=== PATIENT | female | born 1950 | race African-American/Black ===

== ENCOUNTER 2019-01-07 09:57 | Inpatient (IN) | payer BC, MEDICAID, MEDICARE, OTHER ==
[2019-01-07] VITALS (27 sets, daily range): BP systolic 114–151; BP diastolic 75–100
[~2019-01-07] VITALS: Ht 157.5 cm; Wt 63.5 kg
[~2019-01-07 09:57] MED LIST: AMLO10TA80 PO; ASPI-1079 PO; ATOR10TA PO; CLOP75TA4 PO; DIVA500T3 PO
[2019-01-07] MEDS ORDERED: SODIUM CHLORIDE 0.9% 1,000 ML IV ONE (10:00)
[2019-01-07] MEDS ORDERED: LEVETIRACETAM 1000MG/100ML 100 ML IV ONE (10:00)
[2019-01-07] MEDS ORDERED: LORAZEPAM 2MG/ML CPJ IV ONE (10:00)
[2019-01-07] MEDS ORDERED: PROPOFOL 10MG/ML 100ML 100 ML IV ONE (10:15)
[2019-01-07] MEDS ORDERED: SUCCINYLCHOLINE CHLORIDE 200MG/10ML IV ONE (10:15)
[2019-01-07] MEDS ORDERED: ETOMIDATE 2MG/ML 10ML VIAL IV ONE (10:15)
[2019-01-07] MEDS ORDERED: MIDAZOLAM HCL 50 MG in DEXTROSE 5% WATER 40 ML IV ONE (10:15)
[2019-01-07 10:19] LABS: HEMOGLOBIN. 11.3 g/dL (12.0-16.0); MEAN CORPUSCULAR HEMOGLOBIN 33.5 pg (28.0-32.0); MEAN PLATELET VOLUME 9.8 fl (7.4-10.4); PLATELET 125 x1000/uL (130-400); RED BLOOD CELL COUNT 3.37 mill/uL (4.2-5.4)
[2019-01-07 10:26] LABS: INR 1.2; PROTHROMBIN TIME 12.3 sec (9.6-11.0)
[2019-01-07 10:37] LABS: CHLORIDE 107 mEq/L (98-107)
[2019-01-07 10:42] LABS: ETHANOL BLOOD < 10 mg/dL
[2019-01-07 10:46] LABS: CARBAMAZEPINE < 0.5 ug/mL (4-12); CREATINE KINASE 112 IU/L (26-192); PHENOBARBITAL < 2.1 ug/mL (15.0-40.0)
[2019-01-07 10:48] LABS: PLATELET ESTIMATE SLIGHTLY DECREASED
[2019-01-07 11:15] LABS: CLARITY URINE CLEAR (CLEAR); COLOR URINE YELLOW (YELLOW); KETONES URINE TRACE (NEGATIVE); LEUKOCYTE ESTERASE URINE NEGATIVE (NEGATIVE); NITRITE URINE NEGATIVE (NEGATIVE); OCCULT BLOOD URINE NEGATIVE (NEGATIVE); PH URINE 6.5 (4.5-8.0); PROTEIN URINE 1+ (NEGATIVE); SPECIFIC GRAVITY URINE 1.015 (1.005-1.030)
[2019-01-07] MEDS ORDERED: FUROSEMIDE 20MG/2ML VIAL IVP ONE (11:30)
[2019-01-07] MEDS ORDERED: ASPIRIN 300MG SUPP PR ONE (11:30)
[2019-01-07] MEDS: DEXT 5%/0.45% NACL 1000ML 1,000 ML IV SCH ×2 (11:32→14:27)
[2019-01-07 11:36] LABS: *AMPHETAMINES SCREEN URINE NEGATIVE (NEGATIVE); *BARBITURATES SCREEN URINE NEGATIVE (NEGATIVE); *BENZODIAZEPINES SCREEN URINE PRESUMTIVE POSITIVE (NEGATIVE)
[2019-01-07 11:37] LABS: *COCAINE SCREEN URINE NEGATIVE (NEGATIVE); CANNABINOID URINE SCREEN NEGATIVE (NEGATIVE); METHADONE URINE SCREEN NEGATIVE (NEGATIVE); OPIATES URINE SCREEN NEGATIVE (NEGATIVE)
[2019-01-07 11:38] LABS: PHENCYCLIDINE URINE SCREEN NEGATIVE (NEGATIVE)
[2019-01-07] MEDS ORDERED: NA PHOS,M-B/NA PHOS,DI-BA ENEMA 118ML PR PRN (11:45)
[2019-01-07] MEDS ORDERED: ENOXAPARIN 40MG/0.4ML SYR SUBCUT SCH (11:45)
[2019-01-07] MEDS ORDERED: MORPHINE SULFATE 2 MG/ML CPJ (NOT FOR IM USE) IV PRN (11:45)
[2019-01-07] MEDS ORDERED: DIPHENHYDRAMINE 50MG/ML VIAL IV PRN (11:45)
[2019-01-07] MEDS ORDERED: HYDROCODONE/ACETAMINOPHEN 5/325MG TABLET PO PRN (11:45)
[2019-01-07] MEDS ORDERED: CLONIDINE 0.1MG TABLET PO PRN (11:45)
[2019-01-07] MEDS ORDERED: ACETAMINOPHEN 325MG TABLET PO PRN (11:45)
[2019-01-07] MEDS ORDERED: GUAIFENESIN 200MG/10ML SUGAR FREE UDC PO PRN (11:45)
[2019-01-07] MEDS ORDERED: MAGNESIUM/ALUMINUM HYDROXIDE/SIMETHICONE 30ML UDC PO PRN (11:45)
[2019-01-07] MEDS ORDERED: ONDANSETRON HCL 4MG/2ML INJ IV PRN (11:45)
[2019-01-07] MEDS ORDERED: IPRATROPIUM/ALBUTEROL 0.5-3(2.5)MG/3ML NEB INH PRN (11:45)
[2019-01-07] MEDS ORDERED: DOCUSATE SODIUM 100MG CAPSULE PO PRN (11:45)
[2019-01-07 11:47] LABS: BG BASE EXCESS 2.5 mmol/L (-2.0-2.0); BG CARBOXYHEMOGLOBIN 0.3 % (0.5-1.5); BG DEOXYHEMOGLOBIN 0.4 % (0.0-5.0); BG FRACTION INSPIRED OXYGEN 100; BG HCO3 ACT 23.7 mmol/L (22.0-26.0); BG METHEMOGLOBIN 0.3 % (0.0-1.5); BG OXYGEN SATURATION 99.6 % (92.0-98.5); BG PCO2 26.5 mmHg (35.0-45.0); BG PO2 478.4 mmHg (75.0-100.0); BG SAMPLE SITE RIGHT RADIAL; BG TIDAL VOLUME(mL) 500 mL; BG TOTAL HEMOGLOBIN 11.2 g/dL (12.0-18.0); BG VENT MODE VENT - A/C; BG VENT RATE 14 set
[2019-01-07] MEDS ORDERED: LIDOCAINE HCL 1% 20ML VIAL (Pyxis) INJ INFIL ONE (12:30)
[2019-01-07] MEDS ORDERED: CEFTRIAXONE SODIUM 1 G/VIAL IM ONE (12:30)
[2019-01-07] MEDS ORDERED: IPRATROPIUM/ALBUTEROL 0.5-3(2.5)MG/3ML NEB HHN PRN (13:00)
[2019-01-07] MEDS ORDERED: PROPOFOL 10MG/ML 100ML 100 ML IV PRN (13:00)
[2019-01-07] MEDS: ASPIRIN 81MG EC TABLET PO SCH (13:10)
[2019-01-07] MEDS ORDERED: FUROSEMIDE 20MG/2ML VIAL IVP NR (13:30)
[2019-01-07] MEDS: IPRATROPIUM/ALBUTEROL 0.5-3(2.5)MG/3ML NEB HHN SCH ×3 (13:33→19:53)
[2019-01-07] MEDS: ENOXAPARIN 40MG/0.4ML SYR SUBCUT SCH (14:27)
[2019-01-07 15:57] LABS: CREATINE KINASE MB FRACTION 4.9 ng/mL (0.5-3.6)
[2019-01-07] MEDS ORDERED: POTASSIUM CHLORIDE INJ 40 MEQ in DEXT 5% WATER 250 ML IV SCH (16:30)
[2019-01-07] MEDS: PIPERACILLIN/TAZ 3.375G PREMIX 50 ML IV SCH ×2 (17:52→23:45)
[2019-01-07] MEDS ORDERED: LACO150T2 PO (19:00)
[2019-01-07] MEDS ORDERED: DONE5TAB33 PO (19:00)
[2019-01-07] MEDS ORDERED: LISI40TA4 PO (19:00)
[2019-01-07] MEDS ORDERED: METO-385 PO (19:00)
[2019-01-07] MEDS ORDERED: LEVE500T98 PO (19:00)
[2019-01-07] MEDS ORDERED: PRAV10TA35 MT (19:00)
[2019-01-07] MEDS ORDERED: LORAZEPAM 2MG/ML CPJ IV PRN (19:45)
[2019-01-07] MEDS: LEVETIRACETAM 500MG TABLET PO SCH (20:34)
[2019-01-08] VITALS (57 sets, daily range): BP systolic 105–166; BP diastolic 68–108
[2019-01-08] MEDS: IPRATROPIUM/ALBUTEROL 0.5-3(2.5)MG/3ML NEB HHN SCH ×6 (00:11→19:52)
[2019-01-08] MEDS: PIPERACILLIN/TAZ 3.375G PREMIX 50 ML IV SCH ×3 (05:16→17:51)
[2019-01-08 06:00] LABS: BASOPHILS % 0.3 % (0.0-2.0); EOSINOPHILS % 0.1 % (0.0-5.0); HEMATOCRIT. 36.1 % (36.0-48.0); HEMOGLOBIN. 11.8 g/dL (12.0-16.0); LYMPHOCYTES % 38.2 % (20.0-50.0); MEAN CORPUSCULAR HEMOGLOBIN 32.9 pg (28.0-32.0); MEAN CORPUSCULAR VOLUME 100.5 fL (81.0-99.0); MEAN PLATELET VOLUME 11.1 fl (7.4-10.4); MONOCYTES % 10.5 % (2.0-8.0); NEUTROPHILS % 50.9 % (40.0-76.0); PLATELET 101 x1000/uL (130-400); RED BLOOD CELL COUNT 3.59 mill/uL (4.2-5.4); RED CELL DISTRIBUTION WIDTH 14.9 % (11.6-14.6)
[2019-01-08 07:36] LABS: BG BASE EXCESS 0.6 mmol/L (-2.0-2.0); BG CARBOXYHEMOGLOBIN 0.5 % (0.5-1.5); BG DEOXYHEMOGLOBIN 0.9 % (0.0-5.0); BG FRACTION INSPIRED OXYGEN 40; BG HCO3 ACT 23.6 mmol/L (22.0-26.0); BG METHEMOGLOBIN 0.3 % (0.0-1.5); BG OXYGEN SATURATION 99.1 % (92.0-98.5); BG OXYHEMOGLOBIN 98.3 % (94.0-97.0); BG PCO2 32.2 mmHg (35.0-45.0); BG PH 7.482 (7.350-7.450); BG PO2 179.3 mmHg (75.0-100.0); BG SAMPLE SITE RIGHT RADIAL; BG TIDAL VOLUME(mL) 500 mL; BG TOTAL HEMOGLOBIN 11.8 g/dL (12.0-18.0); BG VENT MODE VENT - A/C; BG VENT RATE 12 set
[2019-01-08] MEDS: LEVETIRACETAM 500MG TABLET PO SCH ×2 (09:52→20:24)
[2019-01-08] MEDS: LANSOPRAZOLE 15MG DR CAPSULE NG SCH (09:52)
[2019-01-08] MEDS: ASPIRIN 81MG EC TABLET PO SCH (09:52)
[2019-01-08 09:54] LABS: CHLORIDE 107 mEq/L (98-107)
[2019-01-08 10:04] LABS: CREATINE KINASE MB FRACTION 4.6 ng/mL (0.5-3.6)
[2019-01-08 10:05] LABS: LDL CHOLESTEROL 73 mg/dL (5-100)
[2019-01-08 10:06] LABS: CREATINE KINASE 224 IU/L (26-192); HDL CHOLESTEROL 101 mg/dL (40-59)
[2019-01-08 10:08] LABS: T4 FREE 0.84 ng/dL (0.76-1.46)
[2019-01-08] MEDS ORDERED: POTASSIUM CHLORIDE 20MEQ/PACKET PO NR (11:24)
[2019-01-08] MEDS: DEXT 5%/0.45% NACL 1000ML 1,000 ML IV SCH (11:45)
[2019-01-08] MEDS: ENOXAPARIN 40MG/0.4ML SYR SUBCUT SCH (14:57)
[2019-01-09] VITALS (29 sets, daily range): BP systolic 127–169; BP diastolic 74–99
[2019-01-09] MEDS: IPRATROPIUM/ALBUTEROL 0.5-3(2.5)MG/3ML NEB HHN SCH ×6 (00:17→20:54)
[2019-01-09] MEDS: PIPERACILLIN/TAZ 3.375G PREMIX 50 ML IV SCH ×4 (00:47→17:04)
[2019-01-09] MEDS: DEXT 5%/0.45% NACL 1000ML 1,000 ML IV SCH ×3 (05:27→21:42)
[2019-01-09 07:21] LABS: BG BASE EXCESS 1.2 mmol/L (-2.0-2.0); BG CARBOXYHEMOGLOBIN 0.2 % (0.5-1.5); BG DEOXYHEMOGLOBIN 1.6 % (0.0-5.0); BG HCO3 ACT 23.7 mmol/L (22.0-26.0); BG METHEMOGLOBIN 0.2 % (0.0-1.5); BG OXYGEN SATURATION 98.4 % (92.0-98.5); BG PCO2 30.8 mmHg (35.0-45.0); BG PH 7.504 (7.350-7.450); BG SAMPLE SITE RIGHT RADIAL; BG TIDAL VOLUME(mL) 500 mL; BG TOTAL HEMOGLOBIN 11.5 g/dL (12.0-18.0); BG VENT MODE VENT - A/C; BG VENT RATE 12 set
[2019-01-09 08:40] LABS: BASOPHILS % 0.5 % (0.0-2.0); EOSINOPHILS % 0.2 % (0.0-5.0); HEMATOCRIT. 31.2 % (36.0-48.0); HEMOGLOBIN. 10.3 g/dL (12.0-16.0); LYMPHOCYTES % 38.4 % (20.0-50.0); MEAN CORPUSCULAR HEMOGLOBIN 33.6 pg (28.0-32.0); MEAN CORPUSCULAR VOLUME 101.1 fL (81.0-99.0); MEAN PLATELET VOLUME 9.7 fl (7.4-10.4); MONOCYTES % 8.9 % (2.0-8.0); PLATELET 123 x1000/uL (130-400); RED BLOOD CELL COUNT 3.08 mill/uL (4.2-5.4); RED CELL DISTRIBUTION WIDTH 15.2 % (11.6-14.6)
[2019-01-09] MEDS: LEVETIRACETAM 500MG TABLET PO SCH ×2 (08:58→20:51)
[2019-01-09] MEDS: LANSOPRAZOLE 15MG DR CAPSULE NG SCH (08:58)
[2019-01-09] MEDS: ASPIRIN 81MG EC TABLET PO SCH (08:59)
[2019-01-09] MEDS ORDERED: POTASSIUM CHLORIDE INJ 40 MEQ in DEXT 5% WATER 250 ML IV NR (12:00)
[2019-01-09] MEDS: ENOXAPARIN 40MG/0.4ML SYR SUBCUT SCH (13:37)
[2019-01-09 18:11] LABS: BG BASE EXCESS -0.6 mmol/L (-2.0-2.0); BG CARBOXYHEMOGLOBIN 0.3 % (0.5-1.5); BG DEOXYHEMOGLOBIN 2.5 % (0.0-5.0); BG HCO3 ACT 23.5 mmol/L (22.0-26.0); BG METHEMOGLOBIN 0.4 % (0.0-1.5); BG OXYGEN SATURATION 97.5 % (92.0-98.5); BG OXYHEMOGLOBIN 96.8 % (94.0-97.0); BG PCO2 36.6 mmHg (35.0-45.0); BG PH 7.425 (7.350-7.450); BG PO2 109.6 mmHg (75.0-100.0); BG PRESSURE SUPPORT 14; BG SAMPLE SITE RIGHT BRACHIAL; BG TIDAL VOLUME(mL) 500 mL; BG TOTAL HEMOGLOBIN 10.8 g/dL (12.0-18.0); BG VENT MODE VENT - SIMV; BG VENT RATE 6 set
[2019-01-09 20:25] LABS: BG BASE EXCESS 1.2 mmol/L (-2.0-2.0); BG CARBOXYHEMOGLOBIN 0.3 % (0.5-1.5); BG DEOXYHEMOGLOBIN 1.5 % (0.0-5.0); BG FRACTION INSPIRED OXYGEN 35; BG HCO3 ACT 25.5 mmol/L (22.0-26.0); BG METHEMOGLOBIN 0.2 % (0.0-1.5); BG OXYGEN SATURATION 98.5 % (92.0-98.5); BG PCO2 39.3 mmHg (35.0-45.0); BG PEEP (cmH2O) 0 cmH2O; BG PO2 148.8 mmHg (75.0-100.0); BG PRESSURE SUPPORT 8; BG SAMPLE SITE RIGHT RADIAL; BG TOTAL HEMOGLOBIN 10.7 g/dL (12.0-18.0); BG VENT MODE VENT - CPAP
[2019-01-09] MEDS ORDERED: DEXTROSE 50% WATER 50ML SYRINGE IV PRN ×2 (21:15)
[2019-01-09] MEDS: HYDROCORTISONE SOD SUCCINATE 100 MG/2 ML VIAL IV SCH ×2 (21:23→21:42)
[2019-01-09] MEDS: LORAZEPAM 2MG/ML CPJ IV PRN ×2 (22:10→22:13)
[2019-01-10] VITALS (26 sets, daily range): BP systolic 113–162; BP diastolic 61–112
[2019-01-10] MEDS: BLOOD SUGAR DIAGNOSTIC STRIP TEST SCH ×4 (00:04→18:42)
[2019-01-10] MEDS: PIPERACILLIN/TAZ 3.375G PREMIX 50 ML IV SCH ×4 (00:10→18:42)
[2019-01-10] MEDS: IPRATROPIUM/ALBUTEROL 0.5-3(2.5)MG/3ML NEB HHN SCH ×6 (00:31→20:04)
[2019-01-10] MEDS: INSULIN LISPRO 100 UNITS/ML SUBCUT SCH ×4 (06:00→18:00)
[2019-01-10 06:11] LABS: BASOPHILS % 0.3 % (0.0-2.0); HEMATOCRIT. 30.9 % (36.0-48.0); HEMOGLOBIN. 10.3 g/dL (12.0-16.0); MEAN CORPUSCULAR HEMOGLOBIN 33.8 pg (28.0-32.0); MEAN PLATELET VOLUME 10.2 fl (7.4-10.4); MONOCYTES % 3.2 % (2.0-8.0); NEUTROPHILS % 82.5 % (40.0-76.0); PLATELET 133 x1000/uL (130-400); RED BLOOD CELL COUNT 3.06 mill/uL (4.2-5.4); RED CELL DISTRIBUTION WIDTH 15.1 % (11.6-14.6)
[2019-01-10] MEDS: HYDROCORTISONE SOD SUCCINATE 100 MG/2 ML VIAL IV SCH ×2 (06:11→14:41)
[2019-01-10 08:28] LABS: BG BASE EXCESS -2.3 mmol/L (-2.0-2.0); BG CARBOXYHEMOGLOBIN 0.2 % (0.5-1.5); BG DEOXYHEMOGLOBIN 2.5 % (0.0-5.0); BG FRACTION INSPIRED OXYGEN 35; BG HCO3 ACT 22.8 mmol/L (22.0-26.0); BG METHEMOGLOBIN 0.3 % (0.0-1.5); BG OXYGEN SATURATION 97.5 % (92.0-98.5); BG PCO2 40.4 mmHg (35.0-45.0); BG PO2 107.3 mmHg (75.0-100.0); BG PRESSURE SUPPORT 10; BG SAMPLE SITE RIGHT RADIAL; BG TIDAL VOLUME(mL) 500 mL; BG VENT MODE VENT - SIMV; BG VENT RATE 8 set
[2019-01-10] MEDS: LANSOPRAZOLE 15MG DR CAPSULE NG SCH (08:48)
[2019-01-10] MEDS: LEVETIRACETAM 500MG TABLET PO SCH ×2 (08:48→21:54)
[2019-01-10] MEDS: DEXT 5%/0.45% NACL 1000ML 1,000 ML IV SCH ×2 (09:25→21:55)
[2019-01-10] MEDS: AMLODIPINE 5MG TABLET PO SCH ×2 (09:25→21:55)
[2019-01-10] MEDS: ENOXAPARIN 40MG/0.4ML SYR SUBCUT SCH (14:24)
[2019-01-10 18:06] LABS: CLARITY URINE CLEAR (CLEAR); COLOR URINE YELLOW (YELLOW); KETONES URINE NEGATIVE (NEGATIVE); LEUKOCYTE ESTERASE URINE NEGATIVE (NEGATIVE); NITRITE URINE NEGATIVE (NEGATIVE); OCCULT BLOOD URINE 2+ (NEGATIVE); PROTEIN URINE NEGATIVE (NEGATIVE); SPECIFIC GRAVITY URINE 1.017 (1.005-1.030)
[2019-01-11] VITALS (24 sets, daily range): BP systolic 111–149; BP diastolic 58–92
[2019-01-11] MEDS: IPRATROPIUM/ALBUTEROL 0.5-3(2.5)MG/3ML NEB HHN SCH ×6 (00:11→20:15)
[2019-01-11] MEDS: BLOOD SUGAR DIAGNOSTIC STRIP TEST SCH ×5 (00:40→23:53)
[2019-01-11] MEDS: PIPERACILLIN/TAZ 3.375G PREMIX 50 ML IV SCH ×6 (00:50→23:53)
[2019-01-11] MEDS: HYDROCORTISONE SOD SUCCINATE 100 MG/2 ML VIAL IV SCH ×3 (00:50→21:27)
[2019-01-11] MEDS: LORAZEPAM 2MG/ML CPJ IV PRN (01:59)
[2019-01-11 05:47] LABS: HEMATOCRIT 28.7 % (36.0-48.0); HEMOGLOBIN 9.6 g/dL (12.0-16.0); MEAN CORPUSCULAR HEMOGLOBIN 33.3 pg (28.0-32.0); MEAN CORPUSCULAR VOLUME 99.8 fL (81.0-99.0); PLATELET 168 x1000/uL (130-400); RED BLOOD CELL COUNT 2.88 mill/uL (4.2-5.4); RED CELL DISTRIBUTION WIDTH 14.7 % (11.6-14.6)
[2019-01-11] MEDS: INSULIN LISPRO 100 UNITS/ML SUBCUT SCH ×5 (06:00→23:53)
[2019-01-11] MEDS ORDERED: POTASSIUM CHLORIDE 20MEQ TABLET SR PO SCH (07:00)
[2019-01-11 07:47] LABS: BG BASE EXCESS -2.3 mmol/L (-2.0-2.0); BG CARBOXYHEMOGLOBIN 0.4 % (0.5-1.5); BG DEOXYHEMOGLOBIN 3.1 % (0.0-5.0); BG FRACTION INSPIRED OXYGEN 35; BG HCO3 ACT 23.3 mmol/L (22.0-26.0); BG METHEMOGLOBIN 0.2 % (0.0-1.5); BG OXYGEN SATURATION 96.9 % (92.0-98.5); BG OXYHEMOGLOBIN 96.3 % (94.0-97.0); BG PCO2 43.1 mmHg (35.0-45.0); BG PO2 97.5 mmHg (75.0-100.0); BG PRESSURE SUPPORT 10; BG SAMPLE SITE RIGHT RADIAL; BG TIDAL VOLUME(mL) 500 mL; BG TOTAL HEMOGLOBIN 9.4 g/dL (12.0-18.0); BG VENT MODE VENT - SIMV; BG VENT RATE 8 set
[2019-01-11] MEDS: DEXT 5%/0.45% NACL 1000ML 1,000 ML IV SCH ×2 (08:00→23:53)
[2019-01-11] MEDS: AMLODIPINE 5MG TABLET PO SCH ×2 (08:55→21:28)
[2019-01-11] MEDS: LEVETIRACETAM 500MG TABLET PO SCH ×2 (08:55→21:28)
[2019-01-11] MEDS: LANSOPRAZOLE 15MG DR CAPSULE NG SCH (08:55)
[2019-01-11] MEDS: ENOXAPARIN 40MG/0.4ML SYR SUBCUT SCH (16:07)
[2019-01-11] MEDS: VIMPAT 150 MG PO SCH (17:09)
[2019-01-11 19:42] LABS: BG BASE EXCESS -1.3 mmol/L (-2.0-2.0); BG CARBOXYHEMOGLOBIN 0.3 % (0.5-1.5); BG DEOXYHEMOGLOBIN 3.3 % (0.0-5.0); BG FRACTION INSPIRED OXYGEN 35; BG HCO3 ACT 23.8 mmol/L (22.0-26.0); BG METHEMOGLOBIN 0.3 % (0.0-1.5); BG OXYGEN SATURATION 96.7 % (92.0-98.5); BG OXYHEMOGLOBIN 96.1 % (94.0-97.0); BG PCO2 41.3 mmHg (35.0-45.0); BG PH 7.378 (7.350-7.450); BG PO2 97.2 mmHg (75.0-100.0); BG PRESSURE SUPPORT 10; BG SAMPLE SITE RIGHT BRACHIAL; BG TOTAL HEMOGLOBIN 9.8 g/dL (12.0-18.0); BG VENT MODE VENT - CPAP
[2019-01-11] MEDS ORDERED: RACEPINEPHRINE 2.25% 0.5ML NEB VIAL HHN ONE (21:00)
[2019-01-11] MEDS ORDERED: RACEPINEPHRINE 2.25% 0.5ML NEB VIAL HHN PRN (21:00)
[2019-01-12] VITALS (16 sets, daily range): BP systolic 127–150; BP diastolic 66–89
[2019-01-12] MEDS: IPRATROPIUM/ALBUTEROL 0.5-3(2.5)MG/3ML NEB HHN SCH ×5 (00:21→21:52)
[2019-01-12] MEDS: INSULIN LISPRO 100 UNITS/ML SUBCUT SCH ×3 (05:53→18:00)
[2019-01-12] MEDS: BLOOD SUGAR DIAGNOSTIC STRIP TEST SCH ×3 (05:53→18:26)
[2019-01-12] MEDS: PIPERACILLIN/TAZ 3.375G PREMIX 50 ML IV SCH ×3 (05:53→18:26)
[2019-01-12 05:56] LABS: BASOPHILS % 0.1 % (0.0-2.0); HEMOGLOBIN. 9.9 g/dL (12.0-16.0); LYMPHOCYTES % 11.8 % (20.0-50.0); MEAN CORPUSCULAR HEMOGLOBIN 34.3 pg (28.0-32.0); MEAN CORPUSCULAR VOLUME 100.8 fL (81.0-99.0); MEAN PLATELET VOLUME 10.3 fl (7.4-10.4); MONOCYTES % 4.2 % (2.0-8.0); NEUTROPHILS % 83.9 % (40.0-76.0); PLATELET 200 x1000/uL (130-400); RED BLOOD CELL COUNT 2.87 mill/uL (4.2-5.4); RED CELL DISTRIBUTION WIDTH 15.1 % (11.6-14.6)
[2019-01-12 06:03] LABS: CHLORIDE 115 mEq/L (98-107)
[2019-01-12] MEDS ORDERED: POTASSIUM CHLORIDE 20MEQ/PACKET PO SCH (06:45)
[2019-01-12] MEDS: AMLODIPINE 5MG TABLET PO SCH ×2 (08:28→22:01)
[2019-01-12] MEDS: HYDROCORTISONE SOD SUCCINATE 100 MG/2 ML VIAL IV SCH ×2 (08:28→22:02)
[2019-01-12] MEDS: LEVETIRACETAM 500MG TABLET PO SCH ×2 (08:28→22:01)
[2019-01-12] MEDS: LANSOPRAZOLE 15MG DR CAPSULE NG SCH (08:28)
[2019-01-12] MEDS: VIMPAT 150 MG PO SCH ×2 (10:42→16:50)
[2019-01-12] MEDS: DEXT 5%/0.45% NACL 1000ML 1,000 ML IV SCH (10:43)
[2019-01-12] MEDS: ENOXAPARIN 40MG/0.4ML SYR SUBCUT SCH (15:04)
[2019-01-12] MEDS ORDERED: LORAZEPAM 2MG/ML CPJ IV PRN (15:45)
[2019-01-13] VITALS (7 sets, daily range): BP systolic 118–156; BP diastolic 68–79
[2019-01-13] MEDS: PIPERACILLIN/TAZ 3.375G PREMIX 50 ML IV SCH ×5 (00:23→23:43)
[2019-01-13] MEDS: BLOOD SUGAR DIAGNOSTIC STRIP TEST SCH ×5 (00:26→23:47)
[2019-01-13] MEDS: IPRATROPIUM/ALBUTEROL 0.5-3(2.5)MG/3ML NEB HHN SCH ×6 (02:47→20:03)
[2019-01-13] MEDS: INSULIN LISPRO 100 UNITS/ML SUBCUT SCH ×5 (06:00→23:47)
[2019-01-13 06:56] LABS: HEMATOCRIT 27.4 % (36.0-48.0); HEMOGLOBIN 9.4 g/dL (12.0-16.0); MEAN CORPUSCULAR HEMOGLOBIN 34.1 pg (28.0-32.0); MEAN CORPUSCULAR VOLUME 99.6 fL (81.0-99.0); PLATELET 209 x1000/uL (130-400); RED BLOOD CELL COUNT 2.75 mill/uL (4.2-5.4); RED CELL DISTRIBUTION WIDTH 15.1 % (11.6-14.6)
[2019-01-13] MEDS: LANSOPRAZOLE 15MG DR CAPSULE NG SCH (07:10)
[2019-01-13] MEDS: LEVETIRACETAM 500MG TABLET PO SCH ×2 (09:00→21:19)
[2019-01-13] MEDS: AMLODIPINE 5MG TABLET PO SCH ×2 (09:00→21:19)
[2019-01-13] MEDS: VIMPAT 150 MG PO SCH ×3 (09:00→18:01)
[2019-01-13] MEDS: HYDROCORTISONE SOD SUCCINATE 100 MG/2 ML VIAL IV SCH (11:33)
[2019-01-13] MEDS: DEXTROSE 5% WATER 1,000 ML IV SCH (12:28)
[2019-01-13] MEDS: ENOXAPARIN 40MG/0.4ML SYR SUBCUT SCH (12:31)
[2019-01-14] VITALS: BP 130/78
[2019-01-14] MEDS: IPRATROPIUM/ALBUTEROL 0.5-3(2.5)MG/3ML NEB HHN SCH ×3 (01:11→07:26)
[2019-01-14 04:00] VITALS: BP 158/66
[2019-01-14] MEDS: BLOOD SUGAR DIAGNOSTIC STRIP TEST SCH ×2 (05:02→12:34)
[2019-01-14] MEDS: PIPERACILLIN/TAZ 3.375G PREMIX 50 ML IV SCH ×2 (05:02→12:27)
[2019-01-14] MEDS: INSULIN LISPRO 100 UNITS/ML SUBCUT SCH ×2 (05:06→12:00)
[2019-01-14] MEDS: DEXTROSE 5% WATER 1,000 ML IV SCH ×2 (06:45→09:01)
[2019-01-14] MEDS ORDERED: OMEPRAZOLE 20MG CAPSULE EXTENDED RELEASE PO SCH (07:10)
[2019-01-14 08:00] VITALS: BP 128/74
[2019-01-14] MEDS: AMLODIPINE 5MG TABLET PO SCH (09:00)
[2019-01-14] MEDS: LEVETIRACETAM 500MG TABLET PO SCH (09:00)
[2019-01-14] MEDS ORDERED: HYDROCORTISONE SOD SUCCINATE 100 MG/2 ML VIAL IV SCH (09:00)
[2019-01-14 09:53] LABS: HEMATOCRIT 28.8 % (36.0-48.0); HEMOGLOBIN 9.6 g/dL (12.0-16.0); MEAN CORPUSCULAR HEMOGLOBIN 33.6 pg (28.0-32.0); MEAN CORPUSCULAR VOLUME 100.6 fL (81.0-99.0); PLATELET 216 x1000/uL (130-400); RED BLOOD CELL COUNT 2.86 mill/uL (4.2-5.4); RED CELL DISTRIBUTION WIDTH 15.3 % (11.6-14.6)
[2019-01-14] MEDS ORDERED: POTASSIUM CHLORIDE 20MEQ TABLET SR PO NR (10:45)
[2019-01-14 12:00] VITALS: BP 118/68
[2019-01-14] MEDS: ENOXAPARIN 40MG/0.4ML SYR SUBCUT SCH (12:27)
== END 2019-01-14 15:57 | disposition home health service (06) | DRG 207 ==
LOC: ER 09:57 → CVICU 11:36 → EDBEDREQ 11:38 → ENRESERV 11:59 → CVICU 18:53 → 8WST 01-12 13:33
PROVIDERS: ADMIT Internal Medicine; ATTEND Internal Medicine
PROC: 5A1955Z Respiratory Ventilation, Greater than 96 Consecutive Hours (ICD-10-PCS; principal; 2019-01-07)
PROC: 0BH17EZ Insertion of Endotracheal Airway into Trachea, Via Natural or Artificial Opening (ICD-10-PCS; 2019-01-07)
PROC: 0DH67UZ Insertion of Feeding Device into Stomach, Via Natural or Artificial Opening (ICD-10-PCS; 2019-01-07)
DX: J96.00 Acute respiratory failure, unspecified whether with hypoxia or hypercapnia (principal); G93.41 Metabolic encephalopathy; I21.4 Non-ST elevation (NSTEMI) myocardial infarction; J69.0 Pneumonitis due to inhalation of food and vomit; I69.351 Hemiplegia and hemiparesis following cerebral infarction affecting right dominant side; E46 Unspecified protein-calorie malnutrition; E87.0 Hyperosmolality and hypernatremia; E87.3 Alkalosis; N18.3 Chronic kidney disease, stage 3 (moderate); G40.901 Epilepsy, unspecified, not intractable, with status epilepticus; E78.5 Hyperlipidemia, unspecified; I12.9 Hypertensive chronic kidney disease with stage 1 through stage 4 chronic kidney disease, or unspecified chronic kidney disease; E78.00 Pure hypercholesterolemia, unspecified; D69.6 Thrombocytopenia, unspecified; D64.9 Anemia, unspecified; E11.22 Type 2 diabetes mellitus with diabetic chronic kidney disease; I25.10 Atherosclerotic heart disease of native coronary artery without angina pectoris; I51.7 Cardiomegaly; J38.4 Edema of larynx; Z78.1 Physical restraint status; Z79.899 Other long term (current) drug therapy; Z79.82 Long term (current) use of aspirin; Z68.25 Body mass index [BMI] 25.0-25.9, adult
CPT/HCPCS: 36415; 36600; 71045; 76770; 80048; 80061; 80156; 80165; 80184; 80185; 80305; 80320; 82375; 82550; 82553; 82805; 82962; 83880; 84439; 84443; 84484; 85027; 86850; 86900; 87070; 92610; 93005; 93306; 93970; 94002; 94003; 94640; 96374; 97162; 99285; C1893; J0330; J0696; J1650; J1720; J1953; J2060; J2250; J2270; J2543; J2704; J3480; J3490; J7030; J7040; J7050; J7060; J7070; J7620; G0480

== ENCOUNTER 2019-10-02 14:31 | Inpatient (IN) | payer MEDICARE ==
[~2019-10-02] VITALS: Ht 160 cm; Wt 74.8 kg
[~2019-10-02 14:31] MED LIST changes: -ASPI-1079 PO; -ATOR10TA PO; -CLOP75TA4 PO; +DONE5TAB33 PO; +LACO150T2 PO; +LEVE500T98 PO; +LISI40TA4 PO; +METO-385 PO; +PRAV10TA35 MT
[2019-10-02] MEDS ORDERED: LEVETIRACETAM 1000MG/100ML 100 ML IV ONE (15:15)
[2019-10-02 15:40] LABS: BASOPHILS % 0.7 % (0.0-2.0); EOSINOPHILS % 1.2 % (0.0-5.0); HEMATOCRIT. 36.2 % (36.0-48.0); HEMOGLOBIN. 12.2 g/dL (12.0-16.0); LYMPHOCYTES % 39.9 % (20.0-50.0); MEAN CORPUSCULAR HEMOGLOBIN 31.2 pg (28.0-32.0); MEAN CORPUSCULAR VOLUME 92.9 fL (81.0-99.0); MEAN PLATELET VOLUME 9.1 fl (7.4-10.4); NEUTROPHILS % 51.2 % (40.0-76.0); PLATELET 193 x1000/uL (130-400); RED CELL DISTRIBUTION WIDTH 13.7 % (11.6-14.6)
[2019-10-02 15:42] LABS: CHLORIDE 110 mEq/L (98-107)
[2019-10-02 15:46] LABS: ETHANOL BLOOD < 10 mg/dL
[2019-10-02] MEDS ORDERED: GUAIFENESIN 200MG/10ML SUGAR FREE UDC PO PRN (17:30)
[2019-10-02] MEDS ORDERED: IPRATROPIUM/ALBUTEROL 0.5-3(2.5)MG/3ML NEB NEB PRN (17:30)
[2019-10-02] MEDS ORDERED: ACETAMINOPHEN 325MG TABLET PO PRN (17:30)
[2019-10-02] MEDS ORDERED: MORPHINE SULFATE 2 MG/ML CPJ (NOT FOR IM USE) IV PRN (17:30)
[2019-10-02] MEDS ORDERED: DOCUSATE SODIUM 100MG CAPSULE PO PRN (17:30)
[2019-10-02] MEDS ORDERED: MAGNESIUM/ALUMINUM HYDROXIDE/SIMETHICONE 30ML UDC PO PRN (17:30)
[2019-10-02] MEDS ORDERED: CLONIDINE 0.1MG TABLET PO PRN (17:30)
[2019-10-02] MEDS ORDERED: HYDROCODONE/ACETAMINOPHEN 5/325MG TABLET PO PRN (17:30)
[2019-10-02] MEDS ORDERED: ONDANSETRON HCL 4MG/2ML INJ IV PRN (17:30)
[2019-10-02] MEDS ORDERED: LORAZEPAM 2MG/ML CPJ IV PRN ×2 (17:30→20:49)
[2019-10-02 17:35] LABS: CLARITY URINE CLEAR (CLEAR); COLOR URINE YELLOW (YELLOW); KETONES URINE NEGATIVE (NEGATIVE); LEUKOCYTE ESTERASE URINE TRACE (NEGATIVE); NITRITE URINE NEGATIVE (NEGATIVE); OCCULT BLOOD URINE NEGATIVE (NEGATIVE); PH URINE 7.5 (4.5-8.0); PROTEIN URINE 1+ (NEGATIVE); SPECIFIC GRAVITY URINE 1.012 (1.005-1.030); UROBILINOGEN URINE 0.2 E.U./dL (0.2-1.0)
[2019-10-02 17:49] LABS: *AMPHETAMINES SCREEN URINE NEGATIVE (NEGATIVE); *BARBITURATES SCREEN URINE NEGATIVE (NEGATIVE); *BENZODIAZEPINES SCREEN URINE PRESUMTIVE POSITIVE (NEGATIVE); *COCAINE SCREEN URINE NEGATIVE (NEGATIVE); METHADONE URINE SCREEN NEGATIVE (NEGATIVE); OPIATES URINE SCREEN NEGATIVE (NEGATIVE)
[2019-10-02 17:50] LABS: CANNABINOID URINE SCREEN NEGATIVE (NEGATIVE); PHENCYCLIDINE URINE SCREEN NEGATIVE (NEGATIVE)
[2019-10-02] MEDS: SODIUM CHLORIDE 0.45% 1,000 ML IV SCH (18:15)
[2019-10-02] MEDS: ENOXAPARIN 40MG/0.4ML SYR SUBCUT SCH (21:57)
[2019-10-03 04:10] VITALS: BP 157/80
[2019-10-03 04:30] VITALS: BP 147/70
[2019-10-03 08:00] VITALS: BP 144/67
[2019-10-03] MEDS: ASPIRIN 81MG EC TABLET PO SCH (08:53)
[2019-10-03 09:48] LABS: HEMATOCRIT. 36.6 % (36.0-48.0); HEMOGLOBIN. 12.3 g/dL (12.0-16.0); MEAN CORPUSCULAR HEMOGLOBIN 31.2 pg (28.0-32.0); MEAN CORPUSCULAR VOLUME 92.4 fL (81.0-99.0); MEAN PLATELET VOLUME 9.1 fl (7.4-10.4); PLATELET 191 x1000/uL (130-400); RED BLOOD CELL COUNT 3.96 mill/uL (4.2-5.4); RED CELL DISTRIBUTION WIDTH 14.1 % (11.6-14.6)
[2019-10-03 09:52] LABS: CHLORIDE 110 mEq/L (98-107)
[2019-10-03 10:01] LABS: HDL CHOLESTEROL 84 mg/dL (40-59)
[2019-10-03 10:02] LABS: LDL CHOLESTEROL 111 mg/dL (5-100)
[2019-10-03 10:23] LABS: CREATINE KINASE 61 IU/L (26-192)
[2019-10-03] MEDS: SODIUM CHLORIDE 0.45% 1,000 ML IV SCH ×2 (11:43→19:47)
[2019-10-03 12:00] VITALS: BP 139/54
[2019-10-03 14:31] LABS: PLATELET ESTIMATE NORMAL
[2019-10-03 16:00] VITALS: BP 150/74
[2019-10-03] MEDS: LACOSAMIDE 200 MG TABLET (VIMPAT) PO SCH (17:43)
[2019-10-03 20:00] VITALS: BP 152/74
[2019-10-03] MEDS: LEVETIRACETAM 500MG TABLET PO SCH (21:15)
[2019-10-03] MEDS: VALPROIC ACID 250MG CAPSULE PO SCH (21:18)
[2019-10-04] VITALS: BP 154/67
[2019-10-04 04:00] VITALS: BP 155/75
[2019-10-04] MEDS: SODIUM CHLORIDE 0.45% 1,000 ML IV SCH (06:23)
[2019-10-04 07:08] LABS: CHLORIDE 108 mEq/L (98-107)
[2019-10-04 07:29] LABS: BASOPHILS % 0.6 % (0.0-2.0); EOSINOPHILS % 2.2 % (0.0-5.0); HEMATOCRIT. 34.9 % (36.0-48.0); HEMOGLOBIN. 11.5 g/dL (12.0-16.0); MEAN CORPUSCULAR HEMOGLOBIN 30.5 pg (28.0-32.0); MEAN CORPUSCULAR VOLUME 92.6 fL (81.0-99.0); MEAN PLATELET VOLUME 9.4 fl (7.4-10.4); NEUTROPHILS % 36.2 % (40.0-76.0); PLATELET 176 x1000/uL (130-400); RED BLOOD CELL COUNT 3.77 mill/uL (4.2-5.4); RED CELL DISTRIBUTION WIDTH 13.7 % (11.6-14.6)
[2019-10-04 08:00] VITALS: BP 142/66
[2019-10-04] MEDS: ASPIRIN 81MG EC TABLET PO SCH (08:30)
[2019-10-04] MEDS: LEVETIRACETAM 500MG TABLET PO SCH (08:30)
[2019-10-04] MEDS: VALPROIC ACID 250MG CAPSULE PO SCH (08:30)
[2019-10-04] MEDS: LACOSAMIDE 200 MG TABLET (VIMPAT) PO SCH ×2 (08:30→16:37)
[2019-10-04] MEDS ORDERED: CLOPIDOGREL 75MG TABLET PO SCH (09:00)
[2019-10-04 12:00] VITALS: BP 147/76
[2019-10-04 13:42] VITALS: BP 147/74
[2019-10-04 16:00] VITALS: BP 147/47
[2019-10-04] MEDS: ENOXAPARIN 40MG/0.4ML SYR SUBCUT SCH (17:38)
== END 2019-10-04 18:02 | disposition home or self-care (01) | DRG 100 ==
LOC: ER 14:31 → EDBEDREQ 17:02 → ENRESERV 10-03 03:06 → 7WST 10-03 04:37
PROVIDERS: ADMIT Internal Medicine; ATTEND Internal Medicine
DX: G40.909 Epilepsy, unspecified, not intractable, without status epilepticus (principal); N17.0 Acute kidney failure with tubular necrosis; I69.351 Hemiplegia and hemiparesis following cerebral infarction affecting right dominant side; E86.0 Dehydration; N18.9 Chronic kidney disease, unspecified; F03.90 Unspecified dementia, unspecified severity, without behavioral disturbance, psychotic disturbance, mood disturbance, and anxiety; I12.9 Hypertensive chronic kidney disease with stage 1 through stage 4 chronic kidney disease, or unspecified chronic kidney disease; E87.6 Hypokalemia; D64.9 Anemia, unspecified; Z79.899 Other long term (current) drug therapy
CPT/HCPCS: 36415; 70551; 76770; 80048; 80053; 80061; 80305; 80320; 80339; 81003; 82550; 84439; 84443; 84484; 85025; 97116; 97162; 97166; 99285; J1650; J1953; J2060; G0480

== ENCOUNTER 2024-01-20 11:47 | Emergency (ER) | payer MEDICARE ==
[~2024-01-20] VITALS: Ht 162.6 cm; Wt 58.0 kg
[~2024-01-20 11:47] MED LIST changes: +LISI40TA13 PO; -LISI40TA4 PO
[2024-01-20 11:52] VITALS: O2SAT 100
[2024-01-20 13:15] LABS: BASOPHILS % 0.4 % (0.0-2.0); HEMATOCRIT. 33.7 % (36.0-48.0); HEMOGLOBIN. 11.5 g/dL (12.0-16.0); MEAN CORPUSCULAR HEMOGLOBIN 32.2 pg (28.0-32.0); MEAN CORPUSCULAR VOLUME 94.8 fL (81.0-99.0); MEAN PLATELET VOLUME 9.1 fl (7.4-10.4); MONOCYTES % 6.6 % (2.0-8.0); PLATELET 228 x1000/uL (130-400); RED BLOOD CELL COUNT 3.56 mill/uL (4.2-5.4); RED CELL DISTRIBUTION WIDTH 13.7 % (11.6-14.6); WHITE BLOOD COUNT 5.9 x1000/uL (4.5-11.0)
[2024-01-20 13:24] LABS: POTASSIUM 4.1 mEq/L (3.5-5.1)
[2024-01-20 13:25] LABS: CALCIUM 9.6 mg/dL (8.7-10.4)
[2024-01-20 13:30] LABS: CREATININE 1.3 mg/dL (0.6-1.0)
[2024-01-20 14:27] VITALS: TEMP 96
[2024-01-20] MEDS: LEVETIRACETAM 500MG PREMIX 100 ML IV ONE (14:33)
[2024-01-20 18:26] LABS: CLARITY URINE CLEAR (CLEAR); COLOR URINE YELLOW (YELLOW); GLUCOSE URINE NEGATIVE (NEGATIVE); KETONES URINE NEGATIVE (NEGATIVE); LEUKOCYTE ESTERASE URINE 2+ (NEGATIVE); NITRITE URINE NEGATIVE (NEGATIVE); OCCULT BLOOD URINE NEGATIVE (NEGATIVE); PROTEIN URINE NEGATIVE (NEGATIVE); SPECIFIC GRAVITY URINE 1.005 (1.005-1.030); UROBILINOGEN URINE 0.2 E.U./dL (0.2-1.0)
[2024-01-20 20:15] LABS: BACTERIA URINE TRACE; SQUAMOUS EPITHELIAL CELL URINE FEW /lpf (RARE/1+)
[2024-01-20 20:16] LABS: RBC URINE NONE SEEN /hpf (0-2)
[2024-01-21 00:55] VITALS: BP 165/90; PULSE 60; RESP 14
[2024-01-21] MEDS: HYDRALAZINE 20MG/ML VIAL IV ONE (01:16)
== END 2024-01-21 01:25 | disposition short-term general hospital (02) ==
LOC: EDBEDREQ 13:07 → ER 13:54 → CANBEDREQ 01-22 22:31
DX: S01.111A Laceration without foreign body of right eyelid and periocular area, initial encounter (principal); G40.909 Epilepsy, unspecified, not intractable, without status epilepticus; E78.00 Pure hypercholesterolemia, unspecified; I10 Essential (primary) hypertension; Z86.73 Personal history of transient ischemic attack (TIA), and cerebral infarction without residual deficits; X58.XXXA Exposure to other specified factors, initial encounter; Y93.89 Activity, other specified; Y92.89 Other specified places as the place of occurrence of the external cause; Y99.8 Other external cause status
CPT/HCPCS: 99284; 96365; 70450; 80048; 81003; 83605; 85025; 36415; J1953; C1893